=== PATIENT | male | born 1965 | race Caucasian/White ===

== ENCOUNTER 2021-01-29 23:21 | Emergency (ER) | payer OTHER ==
[~2021-01-29] VITALS: Ht 167.6 cm; Wt 72.6 kg
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
--- NOTE | 2021-01-30 00:03 | NUR ---
PT TAKEN TO CT VIA [facility]
--- NOTE | 2021-01-30 00:07 | NUR ---
PT RETURNED TO ER BED 14
--- NOTE | 2021-01-30 00:35 | NUR ---
DR ORTEZ AT BEDSIDE
--- NOTE | 2021-01-30 00:50 | NUR ---
Patient discharged to home in stable condition. Written and verbal after care instructions given. Patient verbalizes understanding of instruction. PT ambulatory with a steady gait
[2021-01-30 00:55] VITALS: BP 154/81
== END 2021-01-30 00:50 ==
LOC: ER 23:27
DX: S01.01XA Laceration without foreign body of scalp, initial encounter (principal); S09.8XXA Other specified injuries of head, initial encounter; I10 Essential (primary) hypertension; Z60.2 Problems related to living alone; Y08.89XA Assault by other specified means, initial encounter; Y93.89 Activity, other specified; Y92.89 Other specified places as the place of occurrence of the external cause; Y99.8 Other external cause status
CPT/HCPCS: 70450-TC